=== PATIENT | female | born 1970 | race Caucasian/White ===

== ENCOUNTER 2018-01-23 11:32 | Inpatient (IN) | payer BC ==
[2018-01-23 13:10] VITALS: BMI 23.0
--- NOTE | 2018-01-23 17:24 | HP ---
CIWA Score - CIWA Score Nausea/Vomitin Muscle Tremors: 2 Anxiety: 2 Agitation: 2 Paroxysmal Sweats: 1-Minimal Palms Moist Orientation: 0-Oriented Tacttile Disturbances: 1-Very Mild Itch/Numbness Auditory Disturbances: 1-Very Mild Visual Disturbances: 1-Very Mild Sensitivity Headache: 2-Mild CIWA-Ar Total Score: 14 Admission ROS BHS - HPI Chief Complaint: i need help to stop drinking alcohol Allergies/Adverse Reactions: Allergies Allergy/AdvReac Type Severity Reaction Status Date / Time doxycycline Allergy Severe Vomiting Verified 01/23/18 16:46 tramadol Allergy Severe Nausea Verified 01/23/18 16:46 History of Present Illness: this 47 years old female with alcohol dependence,seeking detox,withdrawal symptom,last detox 2000 in [place] syncope alcohol related 2 weeks ago nicotine dependence weight loss has been in suboxone for 3 years ,last medicated today 8mgs/2mgs daily trigeminal neuralgia seen by neurrologsit? longest sobriety 16 years anxiety and depression,insomnia - Ebola screening Have you traveled outside of the country in the last 21 days: No Have you been sick,other than usual withdrawal symptoms: No - Review of Systems Constitutional: Loss of Appetite, Malaise, Night Sweats, Changes in sleep, Weakness, Unintentional Wgt. Loss EENT: reports: Nose Congestion Respiratory: reports: No Symptoms reported Cardiac: reports: No Symptoms Reported GI: reports: Nausea, Indigestion, Abdominal cramping Musculoskeletal: reports: Back Pain, Muscle Pain Integumentary: reports: Dryness Neuro: reports: Headache, Tremors Endocrine: reports: No Symptoms Reported Hematology: reports: No Symptoms Reported Psychiatric: reports: No Sypmtoms Reported, Judgement Intact, Mood/Affect Appropiate, Agitated, Anxious, Depressed (insomnia) Patient History - Patient Medical History Hx Anemia: No Hx Asthma: No Hx Chronic Obstructive Pulmonary Disease (COPD): No Hx Cancer: No Hx Cardiac Disorders: No Hx Congestive Heart Failure: No Hx Hypertension: No Hx Hypercholesterolemia: No Hx Pacemaker: No HX Cerebrovascular Accident: No Hx Seizures: No Hx Dementia: No Hx Diabetes: No Hx Gastrointestinal Disorders: No Hx Liver Disease: No Hx Genitourinary Disorders: No Hx Sexually Transmitted Disorders: No Hx Renal Disease (ESRD): No Hx Thyroid Disease: Yes (hypothyroidism) Hx Human Immunodeficiency Virus (HIV): No (last 2016 negative) Hx Hepatitis C: No Hx Depression: Yes Hx Suicide Attempt: No Hx Bipolar Disorder: No Hx Schizophrenia: No Other Medical History: anxiety,depression,insomnia - Patient Surgical History Past Surgical History: No Hx Neurologic Surgery: No Hx Cataract Extraction: No Hx Cardiac Surgery: No Hx Lung Surgery: No Hx Breast Surgery: No Hx Breast Biopsy: No Hx Abdominal Surgery: No Hx Appendectomy: No Hx Cholecystectomy: No Hx Genitourinary Surgery: No Hx Section: No Hx Orthopedic Surgery: No Anesthesia Reaction: No - PPD History Previous Implant?: Yes Documented Results: Negative w/o proof Implanted On Prior R Admission?: No PPD to be Administered?: Yes - Reproductive History Patient is a Female of Child Bearing Age (11 -55 yrs old): Yes Last Menstrual Period: 11/18/17 Patient : No - Smoking Cessation Smoking history: Current every day smoker Have you smoked in the past 12 months: Yes Aproximately how many cigarettes per day: 5 Hx Chewing Tobacco Use: No Initiated information on smoking cessation: Yes 'Breaking Loose' booklet given: 01/23/18 - Substance & Tx. History Hx Alcohol Use: Yes Hx Substance Use: No Substance Use Type: Alcohol Hx Substance Use Treatment: Yes ([place] 16 years ago) - Substances Abused Alcohol Route: Oral Frequency: Daily Amount used: LIQUOR- 3 PINTS Age of first use: 17 Date of Last Use: 01/21/18 Family Disease History - Family Disease History Family Disease History: [place]: Mother ( metastastic bone cancer), Other: Father (alcohol,) Admission Physical Exam BHS - Vital Signs Vital Signs: Vital Signs - 24 hr 01/23/18 13:07 Temperature 97.6 F Pulse Rate 86 Respiratory 18 Rate Blood Pressure 116/71 - Physical General Appearance: Yes: Moderate Distress, Tremorous, Irritable, Sweating, Anxious HEENTM: Yes: Normal ENT Inspection, ALIS, Pharynx Normal Respiratory: Yes: Lungs Clear, Normal Breath Sounds, No Respiratory Distress Neck: Yes: Within Normal Limits, Supple, Trachea in good position Breast: Yes: Breast Exam Deferred Cardiology: Yes: Within Normal Limits, Regular Rhythm, Regular Rate, S1, S2 Abdominal: Yes: Within Normal Limits, Normal Bowel Sounds, Non Tender, Flat, Soft Genitourinary: Yes: Within Normal Limits Back: Yes: Muscle Spasm Musculoskeletal: Yes: full range of Motion, Back pain, Muscle Pain Extremities: Yes: Normal Range of Motion, Tremors Neurological: Yes: associate program manager II-XII NML intact, Alert, Motor Strength 5/5 Integumentary: Yes: Dry Lymphatic: Yes: Within Normal Limits - Diagnostic (1) Alcohol dependence with uncomplicated withdrawal Current Visit: Yes Status: Acute (2) Syncope Current Visit: Yes Status: Acute (3) Encounter for monitoring Suboxone maintenance therapy Current Visit: Yes Status: Acute (4) Dehydration Current Visit: Yes Status: Acute (5) Nicotine dependence Current Visit: Yes Status: Acute (6) Insomnia secondary to depression with anxiety Current Visit: Yes Status: Acute (7) Hypothyroidism Current Visit: Yes Status: Acute (8) Weight loss Current Visit: Yes Status: Acute Cleared for Admission [facility] - Detox or Rehab [facility] Level of Care: Medically Managed Detox Regimen/Protocol: Librium [facility] Breath Alcohol Content Breath Alcohol Content: 0 Urine Pregancy Test - Result Urine Test Results: Negative- NO Line Present Urine Drug Screen - Results Drug Screen Negative: No Urine Drug Screen Results: BZO-Benzodiazepines, BUP-Suboxone
[2018-01-23] MEDS ORDERED: ACETAMINOPHEN 325 MG TABLET (FP) PO PRN (17:40)
[2018-01-23] MEDS ORDERED: MAGNESIUM HYDROX 2400MG/30ML ORAL SUSPENSION 30 ML CUP PO PRN (17:40)
[2018-01-23] MEDS ORDERED: LOPERAMIDE HCL 2 MG CAPSULE PO PRN (17:40)
[2018-01-23] MEDS ORDERED: MENTHOL/PHENOL 1 EACH UD MM PRN (17:40)
[2018-01-23] MEDS ORDERED: MAGNESIUM CITRATE 300 ML BOTTLE PO PRN (17:40)
[2018-01-23] MEDS ORDERED: MAG HYDROX/AL HYDROX/SIMETH 30 ML UNIT-DOSE CUP PO PRN (17:40)
[2018-01-23] MEDS ORDERED: guaiFENesin/D-METHORPHAN HB 10 ML UNIT-DOSE CUPS PO PRN (17:40)
[2018-01-23] MEDS ORDERED: hydrOXYzine PAMOATE 50 MG CAPSULE (FP) PO PRN (17:40)
[2018-01-23] MEDS ORDERED: IBUPROFEN 400 MG TABLET (FP) PO PRN (17:40)
[2018-01-23] MEDS ORDERED: P-EPHED 60MG/TRIPROLIDI 2.5MG TABLET PO PRN (17:40)
[2018-01-23] MEDS: NICOTINE 14 MG/24 HOURS TOPICAL PATCH TD SCH (19:33)
[2018-01-23] MEDS: chlordiazePOXIDE HCL 25 MG CAPSULE PO PRN (19:33)
[2018-01-23] MEDS ORDERED: MELATONIN 5 MG TABLETS PO PRN (22:00)
[2018-01-23] MEDS: chlordiazePOXIDE HCL 25 MG CAPSULE PO SCH (22:19)
[2018-01-23] MEDS: THIAMINE HCL 100 MG TABLET (FP) PO SCH (22:19)
[2018-01-24] MEDS: chlordiazePOXIDE HCL 25 MG CAPSULE PO SCH ×4 (05:41→22:03)
[2018-01-24] MEDS: chlordiazePOXIDE HCL 25 MG CAPSULE PO PRN ×2 (07:41→19:19)
[2018-01-24] MEDS: LEVOTHYROXINE NA 25 MCG TABLET (FP) PO SCH (07:42)
[2018-01-24] MEDS: PRENATAL VITAMINS W/ FOLIC ACID TABLET (FP) PO SCH (10:42)
[2018-01-24] MEDS: BUPRENORPHINE/NALOXONE 8 MG/2 MG FILM PACKET SL SCH (10:42)
[2018-01-24] MEDS: NICOTINE 14 MG/24 HOURS TOPICAL PATCH TD SCH (10:42)
[2018-01-24 11:09] LABS: HEMATOCRIT 35.9 % (32.4-45.2); HEMOGLOBIN 11.9 GM/dL (10.7-15.3); MCH 34.6 pg (25.7-33.7); MCHC 33.2 g/dl (32.0-36.0); MEAN CELL VOLUME 104.4 fl (80-96); MEAN PLT VOLUME 7.4 fl (7.5-11.1); PLATELET COUNT 147 K/MM3 (134-434); RBC 3.44 M/mm3 (3.60-5.2); RDW 13.7 % (11.6-15.6); WHITE BLOOD COUNT 4.5 K/mm3 (4.0-10.0)
[2018-01-24 12:00] LABS: URINE APPEARANCE CLOUDY; URINE BILIRUBIN NEGATIVE (<2.0 mg/dL); URINE COLOR AMBER; URINE GLUCOSE (UA) NEGATIVE (NEGATIVE); URINE KETONE NEGATIVE (NEGATIVE); URINE LEUK ESTERASE NEGATIVE (NEGATIVE); URINE NITRITE NEGATIVE (NEGATIVE); URINE PROTEIN 1+ (NEGATIVE); URINE UROBILINOGEN NEGATIVE mg/dL (0.2-1.0)
[2018-01-24 12:06] LABS: CALCIUM OXALATE CRYSTALS FEW /hpf (NONE SEEN); EPI CELLS FEW /HPF (FEW); URINE MUCUS RARE
[2018-01-24 12:09] LABS: ALBUMIN 2.8 g/dl (3.4-5.0); ALK PHOS 100 U/L (45-117); ANION GAP 5 MMOL/L (8-16); BILIRUBIN,TOTAL 0.6 mg/dL (0.2-1); BLOOD UREA NITROGEN 13 mg/dL (7-18); CALCIUM 8.6 mg/dL (8.5-10.1); CHLORIDE 106 mmol/L (98-107); CO2 31 mmol/L (21-32); CREATININE 0.3 mg/dL (0.55-1.3); GLUCOSE,RANDOM 78 mg/dL (74-106); POTASSIUM 3.8 mmol/L (3.5-5.1); SGOT/AST 28 U/L (15-37); SGPT/ALT 23 U/L (13-61); SODIUM 142 mmol/L (136-145); TOT PROT 5.5 g/dl (6.4-8.2)
--- NOTE | 2018-01-24 12:24 | CONSULT ---
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 She reported prior Detox treatment in [place] in 2000 including alcohol related seizure, nad black out spells. She received a trial of Suboxone. Refer to counselor summary for more detailed history of alcohol use disorder Medical History: Patient has a history of Hypothyroidism and a history of Trigeminal neuralgia treated by a neurologist Psychiatric History: She denies prior psychiatric history and treatment. C/o feeling anxious with insomnina, denies depression denies suicidal or homicidal ideation Physical/Sexual Abuse/Trauma History: Denied Mental Status Exam - Mental Status Exam Alert and Oriented to: Place, Person Cognitive Function: Good Patient Appearance: Well Groomed Mood: Apprehensive Affect: Appropriate Patient Behavior: Appropriate, Cooperative Speech Pattern: Clear Voice Loudness: Normal Thought Process: Intact Thought Disorder: Not Present Hallucinations: None Suicidal Ideation: None Homicidal Ideation: None Insight/Judgement: Poor Sleep: Poorly Appetite: Fair Muscle strength/Tone: Normal Gait/Station: Normal Psychiatric Findings - Initial Treatment Plan Initial Treatment Plan: Continue in patient detox treatment. Psychoeducation. Ambien 5 mg po q hs prn
[2018-01-24] MEDS ORDERED: chlordiazePOXIDE HCL 25 MG CAPSULE PO ONE (13:59)
--- NOTE | 2018-01-24 13:59 | PN ---
[facility] CIWA - CIWA Score Nausea/Vomitin-Mild Nausea/No Vomiting Muscle Tremors: 3 Anxiety: 2 Agitation: 3 Paroxysmal Sweats: 1-Minimal Palms Moist Orientation: 1-Uncertain about Date Tacttile Disturbances: 0-None Auditory Disturbances: 0-None Visual Disturbances: 0-None Headache: 1-Very Mild CIWA-Ar Total Score: 12 S Progress Note (SOAP) Subjective: sweat tremor restlessness anxiety trouble sleep at night Objective: 01/24/18 14:01 Vital Signs Temperature 96.8 F L 01/24/18 10:00 Pulse Rate 75 01/24/18 10:00 Respiratory Rate 16 01/24/18 10:00 Blood Pressure 91/57 L 01/24/18 10:00 O2 Sat by Pulse Oximetry (%) Laboratory Last Values WBC 4.5 K/mm3 (4.0-10.0) 01/24/18 07:30 RBC 3.44 M/mm3 (3.60-5.2) L 01/24/18 07:30 Hgb 11.9 GM/dL (10.7-15.3) 01/24/18 07:30 Hct 35.9 % (32.4-45.2) 01/24/18 07:30 MCV 104.4 fl (80-96) H 01/24/18 07:30 MCH 34.6 pg (25.7-33.7) H 01/24/18 07:30 MCHC 33.2 g/dl (32.0-36.0) 01/24/18 07:30 RDW 13.7 % (11.6-15.6) 01/24/18 07:30 Plt Count 147 K/MM3 (134-434) 01/24/18 07:30 MPV 7.4 fl (7.5-11.1) L 01/24/18 07:30 Sodium 142 mmol/L (136-145) 01/24/18 07:30 Potassium 3.8 mmol/L (3.5-5.1) 01/24/18 07:30 Chloride 106 mmol/L (98-107) 01/24/18 07:30 Carbon Dioxide 31 mmol/L (21-32) 01/24/18 07:30 Anion Gap 5 MMOL/L (8-16) L 01/24/18 07:30 BUN 13 mg/dL (7-18) 01/24/18 07:30 Creatinine 0.3 mg/dL (0.55-1.3) L 01/24/18 07:30 Creat Clearance w eGFR > 60 (>60) 01/24/18 07:30 Random Glucose 78 mg/dL (74-106) 01/24/18 07:30 Calcium 8.6 mg/dL (8.5-10.1) 01/24/18 07:30 Total Bilirubin 0.6 mg/dL (0.2-1) 01/24/18 07:30 AST 28 U/L (15-37) 01/24/18 07:30 ALT 23 U/L (13-61) 01/24/18 07:30 Alkaline Phosphatase 100 U/L (45-117) 01/24/18 07:30 Total Protein 5.5 g/dl (6.4-8.2) L 01/24/18 07:30 Albumin 2.8 g/dl (3.4-5.0) L 01/24/18 07:30 TSH 1.67 uIU/ml (0.358-3.74) 01/24/18 07:30 Urine Color Bernie 01/24/18 07:30 Urine Appearance Cloudy 01/24/18 07:30 Urine pH 6.0 (5.0-8.0) 01/24/18 07:30 Ur Specific [place] 1.024 (1.010-1.035) 01/24/18 07:30 Urine Protein 1+ (NEGATIVE) H 01/24/18 07:30 Urine Glucose (UA) Negative (NEGATIVE) 01/24/18 07:30 Urine Ketones Negative (NEGATIVE) 01/24/18 07:30 Urine Blood Negative (NEGATIVE) 01/24/18 07:30 Urine Nitrite Negative (NEGATIVE) 01/24/18 07:30 Urine Bilirubin Negative (<2.0 mg/dL) 01/24/18 07:30 Urine Urobilinogen Negative mg/dL (0.2-1.0) 01/24/18 07:30 Ur Leukocyte Esterase Negative (NEGATIVE) 01/24/18 07:30 Urine WBC (Auto) 4 /hpf (3-5) 01/24/18 07:30 Urine RBC (Auto) None /hpf (0-3) 01/24/18 07:30 Ur Epithelial Cells Few /HPF (FEW) 01/24/18 07:30 Calcium Oxalate Crystal Few /hpf (NONE SEEN) 01/24/18 07:30 Urine Mucus Rare 01/24/18 07:30 RPR Titer Nonreactive (NONREACTIVE) 01/24/18 07:30 HIV 1&2 Antibody Screen Negative 01/24/18 07:30 HIV P24 Antigen Negative 01/24/18 07:30 lab noted Assessment: 01/24/18 14:01 withdrawal sx Plan: continue detox
[2018-01-24] MEDS: THIAMINE HCL 100 MG TABLET (FP) PO SCH (22:03)
[2018-01-24] MEDS: ZOLPIDEM TARTRATE 5 MG TABLET PO PRN (22:03)
[2018-01-25] MEDS: chlordiazePOXIDE HCL 25 MG CAPSULE PO PRN ×4 (01:39→20:04)
[2018-01-25] MEDS: chlordiazePOXIDE HCL 25 MG CAPSULE PO SCH ×3 (05:40→16:54)
[2018-01-25] MEDS: LEVOTHYROXINE NA 25 MCG TABLET (FP) PO SCH (07:13)
--- NOTE | 2018-01-25 10:03 | PN ---
Psychiatric Progress Note Vital Signs: Vital Signs Period Temp Pulse Resp BP Sys/Escobedo Pulse Ox Last 24 Hr 96.3 F-99.1 F 76-96 16-20 99-127/59-84 Date of Session: 01/25/18 Chief Complaint:: My medications HPI: Patient reports he forgot to tell to psychiatrist during evaluation he is taking Seroquel 200mg po qhs priorm to admission Current Medications: Active Medications Generic Name Dose Route Start Last Admin Trade Name Freq PRN Reason Stop Dose Admin Acetaminophen 650 mg 01/23/18 17:40 Tylenol - PO Q4H PRN FEVER Al Hydroxide/Mg Hydroxide 30 ml 01/23/18 17:40 Mylanta Oral Suspension - PO Q6H PRN DYSPEPSIA Buprenorphine/Naloxone 1 each 01/24/18 10:00 01/24/18 10:42 Suboxone 8mg/2mg Sl Film - SL 1 each DAILY CHANA Administration Chlordiazepoxide HCl 25 mg 01/24/18 23:00 01/25/18 05:40 Librium - PO 01/25/18 17:01 25 mg [id number] CHANA Administration Chlordiazepoxide HCl 15 mg 01/25/18 23:00 Librium - PO 01/26/18 17:01 [id number] CHANA Chlordiazepoxide HCl 25 mg 01/23/18 17:40 01/25/18 08:26 Librium - PO 01/26/18 17:39 25 mg Q4H PRN Administration WITHDRAWAL(CONT SUBST) Chlordiazepoxide HCl 10 mg 01/26/18 23:00 Librium - PO 01/27/18 17:01 [id number] CHANA Eucalyptus/Menthol/Phenol/Sorbitol 1 each 01/23/18 17:40 Cepastat Lozenge - MM Q4H PRN SORE THROAT Guaifenesin 10 ml 01/23/18 17:40 Robitussin Dm - PO Q6H PRN COUGH Hydroxyzine Pamoate 50 mg 01/23/18 17:40 Vistaril - PO Q4H PRN AGITATION Levothyroxine Sodium 50 mcg 01/24/18 07:00 01/25/18 07:13 Synthroid - PO 50 mcg DAILY@0700 CHANA Administration Loperamide HCl 4 mg 01/23/18 17:40 Imodium - PO Q6H PRN DIARRHEA Magnesium Citrate 300 ml 01/23/18 17:40 Citroma - PO Q48H PRN CONSTIPATION Magnesium Hydroxide 30 ml 01/23/18 17:40 Milk Of Magnesia - PO DAILY PRN CONSTIPATION Melatonin 5 mg 01/23/18 22:00 01/23/18 22:19 Melatonin PO 5 mg HS PRN Administration INSOMNIA Nicotine 14 mg 01/23/18 18:00 01/24/18 10:42 Nicoderm Patch - TD 14 mg DAILY CHANA Administration Multivit/Folic Acid/Iron 1 tab 01/24/18 10:00 01/24/18 10:42 Vitamins (Sjr) - PO 1 tab DAILY CHANA Administration Pseudoephedrine/Triprolidine 1 combo 01/23/18 17:40 Actifed - PO TID PRN NASAL CONGESTION Quetiapine Fumarate 200 mg 01/25/18 22:00 Seroquel - PO HS CHANA Thiamine HCl 100 mg 01/23/18 22:00 01/24/18 22:03 Vitamin B1 - PO 100 mg HS CHANA Administration Zolpidem Tartrate 5 mg 01/24/18 12:29 01/24/18 22:03 Ambien - PO 5 mg HS PRN Administration INSOMNIA Medication(s) Change(s): Seroquel 200mg po qhs Mental Status Exam - Mental Status Exam Alert and Oriented to: Place, Person Cognitive Function: Fair Patient Appearance: Well Groomed Mood: Anxious Affect: Mood Congruent Patient Behavior: Cooperative Speech Pattern: Appropriate Voice Loudness: Mildly Soft/Quiet Thought Process: Goal Oriented Thought Disorder: Being Controlled Hallucinations: Denies Suicidal Ideation: Denies Homicidal Ideation: Denies Appetite: Weight loss Muscle strength/Tone: Mild Hypotonicity Gait/Station: Normal Additional Comments: Seroquel 200mg po qhs Psychiatric Treatment Plan - Problem List (1) Alcohol dependence with uncomplicated withdrawal Current Visit: Yes (2) Hypothyroidism Current Visit: Yes (3) Insomnia secondary to depression with anxiety Current Visit: Yes (4) Nicotine dependence Current Visit: Yes (5) Syncope Current Visit: Yes (6) Weight loss Current Visit: Yes Initial treatment plan: Seroquel 200mg po qhs
[2018-01-25] MEDS: NICOTINE 14 MG/24 HOURS TOPICAL PATCH TD SCH (10:33)
[2018-01-25] MEDS: PRENATAL VITAMINS W/ FOLIC ACID TABLET (FP) PO SCH (10:33)
[2018-01-25] MEDS: BUPRENORPHINE/NALOXONE 8 MG/2 MG FILM PACKET SL SCH (10:33)
--- NOTE | 2018-01-25 11:04 | PN ---
[facility] CIWA - CIWA Score Nausea/Vomitin-No Nausea/No Vomiting Muscle Tremors: 4-Moderate,w/Arms Extend Anxiety: 3 Agitation: 3 Paroxysmal Sweats: 3 Orientation: 0-Oriented Tacttile Disturbances: 0-None Auditory Disturbances: 0-None Visual Disturbances: 0-None Headache: 1-Very Mild CIWA-Ar Total Score: 14 S Progress Note (SOAP) Subjective: interrupted sleep agitation anxiety sweats body aches Objective: 01/25/18 11:02 Vital Signs Temperature 98.0 F 01/25/18 09:18 Pulse Rate 96 H 01/25/18 09:18 Respiratory Rate 16 01/25/18 09:18 Blood Pressure 124/75 01/25/18 09:18 O2 Sat by Pulse Oximetry (%) Laboratory Tests 01/24/18 01/24/18 01/24/18 07:30 07:30 07:30 WBC 4.5 RBC 3.44 L Hgb 11.9 Hct 35.9 MCV 104.4 H MCH 34.6 H MCHC 33.2 RDW 13.7 Plt Count 147 MPV 7.4 L Sodium Potassium Chloride Carbon Dioxide Anion Gap BUN Creatinine Creat Clearance w eGFR Random Glucose Calcium Total Bilirubin AST ALT Alkaline Phosphatase Total Protein Albumin TSH Urine Color Bernie Urine Appearance Cloudy Urine pH 6.0 Ur Specific [place] 1.024 Urine Protein 1+ H Urine Glucose (UA) Negative Urine Ketones Negative Urine Blood Negative Urine Nitrite Negative Urine Bilirubin Negative Urine Urobilinogen Negative Ur Leukocyte Esterase Negative Urine WBC (Auto) 4 Urine RBC (Auto) None Ur Epithelial Cells Few Calcium Oxalate Crystal Few Urine Mucus Rare RPR Titer HIV 1&2 Antibody Screen Negative HIV P24 Antigen Negative 01/24/18 01/24/18 07:30 07:30 WBC RBC Hgb Hct MCV MCH MCHC RDW Plt Count MPV Sodium 142 Potassium 3.8 Chloride 106 Carbon Dioxide 31 Anion Gap 5 L BUN 13 Creatinine 0.3 L Creat Clearance w eGFR > 60 Random Glucose 78 Calcium 8.6 Total Bilirubin 0.6 AST 28 ALT 23 Alkaline Phosphatase 100 Total Protein 5.5 L Albumin 2.8 L TSH 1.67 Urine Color Urine Appearance Urine pH Ur Specific [place] Urine Protein Urine Glucose (UA) Urine Ketones Urine Blood Urine Nitrite Urine Bilirubin Urine Urobilinogen Ur Leukocyte Esterase Urine WBC (Auto) Urine RBC (Auto) Ur Epithelial Cells Calcium Oxalate Crystal Urine Mucus RPR Titer Nonreactive HIV 1&2 Antibody Screen HIV P24 Antigen aaox3 ambulating no acute distress Assessment: 01/25/18 11:03 withdrawal sx Plan: continue detox increase fluids
[2018-01-25] MEDS: QUEtiapine FUMARATE 200 MG TABLET PO SCH (22:01)
[2018-01-25] MEDS: THIAMINE HCL 100 MG TABLET (FP) PO SCH (22:01)
[2018-01-25] MEDS: chlordiazePOXIDE 5 MG CAPSULE PO SCH (22:01)
[2018-01-26] MEDS: chlordiazePOXIDE 5 MG CAPSULE PO SCH ×3 (05:33→17:18)
[2018-01-26] MEDS: LEVOTHYROXINE NA 25 MCG TABLET (FP) PO SCH (06:07)
[2018-01-26] MEDS: chlordiazePOXIDE HCL 25 MG CAPSULE PO PRN ×2 (07:51→12:35)
[2018-01-26] MEDS: BUPRENORPHINE/NALOXONE 8 MG/2 MG FILM PACKET SL SCH (10:40)
[2018-01-26] MEDS: PRENATAL VITAMINS W/ FOLIC ACID TABLET (FP) PO SCH (10:40)
[2018-01-26] MEDS: NICOTINE 14 MG/24 HOURS TOPICAL PATCH TD SCH (10:41)
--- NOTE | 2018-01-26 11:55 | PN ---
[facility] Progress Note (SOAP) Subjective: less shaky sweats interrupted sleep Objective: 01/26/18 11:55 Vital Signs Temperature 97.9 F 01/26/18 09:49 Pulse Rate 87 01/26/18 09:49 Respiratory Rate 18 01/26/18 09:49 Blood Pressure 120/73 01/26/18 09:49 O2 Sat by Pulse Oximetry (%) aaox3 ambulating no acute distress Assessment: 01/26/18 11:55 withdrawal sx Plan: continue detox increase fluids d/c in am
[2018-01-26] MEDS: THIAMINE HCL 100 MG TABLET (FP) PO SCH (22:06)
[2018-01-26] MEDS: ZOLPIDEM TARTRATE 5 MG TABLET PO PRN (22:06)
[2018-01-26] MEDS: chlordiazePOXIDE HCL 10 MG CAPSULE PO SCH (22:06)
[2018-01-26] MEDS: QUEtiapine FUMARATE 200 MG TABLET PO SCH (22:06)
[2018-01-27] MEDS: LEVOTHYROXINE NA 25 MCG TABLET (FP) PO SCH (06:14)
[2018-01-27] MEDS: chlordiazePOXIDE HCL 10 MG CAPSULE PO SCH ×3 (06:14→17:42)
--- NOTE | 2018-01-27 08:37 | DS ---
[facility] Detox Discharge Summary Admission Date: 01/23/18 Discharge Date: 01/27/18 - History Present History: Alcohol Dependence - Physical Exam Results Vital Signs: Vital Signs Temperature 97 F L 01/27/18 07:30 Pulse Rate 87 01/27/18 07:30 Respiratory Rate 18 01/27/18 07:30 Blood Pressure 111/72 01/27/18 07:30 O2 Sat by Pulse Oximetry (%) - Treatment Hospital Course: Detox Protocol Followed, Detoxed Safely, Responded well, Discharged Condition Good, Rehab Referral Accepted - Medication Discharge Medications: Ambulatory Orders Buprenorphine HCl/Naloxone HCl [Suboxone 8 mg-2 mg Sl Tablets] 1 each SL DAILY 01/23/18 Levothyroxine [Synthroid -] 50 mcg PO DAILY 01/23/18 Quetiapine Fumarate [Seroquel -] 200 mg PO HS #30 tablet 01/25/18 - Diagnosis (1) Alcohol dependence with uncomplicated withdrawal Current Visit: Yes Status: Chronic (2) Dehydration Current Visit: Yes Status: Acute (3) Encounter for monitoring Suboxone maintenance therapy Current Visit: Yes Status: Acute (4) Hypothyroidism Current Visit: Yes Status: Acute (5) Insomnia secondary to depression with anxiety Current Visit: Yes Status: Acute (6) Nicotine dependence Current Visit: Yes Status: Chronic Qualifiers: Nicotine product type: cigarettes Substance use status: uncomplicated Qualified Code(s): F17.210 - Nicotine dependence, cigarettes, uncomplicated (7) Syncope Current Visit: Yes Status: Acute (8) Weight loss Current Visit: Yes Status: Acute - AMA Did Patient Leave Against Medical Advice: No (referred to out patient rehab facility)
[2018-01-27] MEDS: BUPRENORPHINE/NALOXONE 8 MG/2 MG FILM PACKET SL SCH (09:43)
[2018-01-27] MEDS: PRENATAL VITAMINS W/ FOLIC ACID TABLET (FP) PO SCH (09:43)
[2018-01-27] MEDS: NICOTINE 14 MG/24 HOURS TOPICAL PATCH TD SCH (10:51)
[2018-01-27 19:09] VITALS: BP 130/70; PULSE 104; TEMP 97.3
== END 2018-01-27 19:16 | disposition other institution (70) | DRG 773 ==
LOC: YASAS 11:32 → Y6N 16:28
PROC: HZ2ZZZZ Detoxification Services for Substance Abuse Treatment (ICD-10-PCS; principal; 2018-01-23)
DX: F10.230 Alcohol dependence with withdrawal, uncomplicated (principal); F11.20 Opioid dependence, uncomplicated; F17.210 Nicotine dependence, cigarettes, uncomplicated; F51.05 Insomnia due to other mental disorder; E86.0 Dehydration; E03.9 Hypothyroidism, unspecified; Z88.1 Allergy status to other antibiotic agents; Z87.898 Personal history of other specified conditions; Z59.0 Homelessness
CPT/HCPCS: 36415; 80053; 81003; 81015; 84443; 85027; 86593; 87389

== ENCOUNTER 2018-01-27 19:38 | Inpatient (IN) | payer BC ==
[2018-01-27] MEDS ORDERED: MAGNESIUM CITRATE 300 ML BOTTLE PO PRN (20:16)
[2018-01-27] MEDS ORDERED: MAG HYDROX/AL HYDROX/SIMETH 30 ML UNIT-DOSE CUP PO PRN (20:16)
[2018-01-27] MEDS ORDERED: MAGNESIUM HYDROX 2400MG/30ML ORAL SUSPENSION 30 ML CUP PO PRN (20:16)
[2018-01-27] MEDS ORDERED: IBUPROFEN 400 MG TABLET (FP) PO PRN (20:16)
[2018-01-27] MEDS ORDERED: NICOTINE POLACRILEX 2 MG GUM BUC PRN (20:16)
[2018-01-27] MEDS ORDERED: guaiFENesin/D-METHORPHAN HB 10 ML UNIT-DOSE CUPS PO PRN (20:16)
[2018-01-27] MEDS ORDERED: P-EPHED 60MG/TRIPROLIDI 2.5MG TABLET PO PRN (20:16)
[2018-01-27] MEDS ORDERED: ACETAMINOPHEN 325 MG TABLET (FP) PO PRN (20:16)
[2018-01-27] MEDS ORDERED: LOPERAMIDE HCL 2 MG CAPSULE PO PRN (20:16)
[2018-01-27] MEDS ORDERED: MENTHOL/PHENOL 1 EACH UD MM PRN (20:16)
--- NOTE | 2018-01-27 20:18 | HP ---
PRE[facility] Rehab Assess/Revision - Admission History Admitted to Rehab from: [facility] Date of Admission to Rehab: 01/27/18 - Findings Detox History & Physical reviewed: Yes Concur with findings: Yes Inpatient Rehab Admission - Initial Determination Are CD services needed?: Yes Free of communicable disease: Yes Not in need of hospitalization: Yes - Rehab Admission Criteria Previous failed treatment: Yes Poor recovery environment: Yes Comorbidities: Yes Lacks judgement: Yes Patient is meeting Inpatient Rehab admission criteria:: Yes
[2018-01-27] MEDS: THIAMINE HCL 100 MG TABLET (FP) PO SCH (23:11)
[2018-01-27] MEDS: MELATONIN 5 MG TABLETS PO PRN (23:11)
[2018-01-28] MEDS: LEVOTHYROXINE NA 25 MCG TABLET (FP) PO SCH (06:50)
[2018-01-28] MEDS: NICOTINE 14 MG/24 HOURS TOPICAL PATCH TD SCH (09:52)
[2018-01-28] MEDS: PRENATAL VITAMINS W/ FOLIC ACID TABLET (FP) PO SCH (09:53)
[2018-01-28] MEDS: BUPRENORPHINE/NALOXONE 8 MG/2 MG FILM PACKET SL SCH (09:53)
[2018-01-28] MEDS ORDERED: LEVOTHYROXINE NA 75 MCG TABLET (FP) PO SCH (10:00)
--- NOTE | 2018-01-28 19:43 | PN ---
PREM Progress Note Note: Psychiatrist military education coordinator note: Called to order medication for newly admitted patient from detox. Medication reconciliation done. Seroquel 200 mg po HS ordered for patient
[2018-01-28] MEDS: QUEtiapine FUMARATE 200 MG TABLET PO SCH ×2 (21:13→21:14)
[2018-01-28] MEDS: THIAMINE HCL 100 MG TABLET (FP) PO SCH (21:14)
[2018-01-29] MEDS: LEVOTHYROXINE NA 25 MCG TABLET (FP) PO SCH (06:07)
[2018-01-29] MEDS: NICOTINE 14 MG/24 HOURS TOPICAL PATCH TD SCH (09:56)
[2018-01-29] MEDS: BUPRENORPHINE/NALOXONE 8 MG/2 MG FILM PACKET SL SCH (09:56)
[2018-01-29] MEDS: PRENATAL VITAMINS W/ FOLIC ACID TABLET (FP) PO SCH (09:56)
--- NOTE | 2018-01-29 11:56 | HP ---
Psychiatrist Admission - Data Date of interview: 01/29/18 Admission source: [address] [place] [address] Identifying data: This is the first admsion to [address] [place] [address] for this 47 years old female Medical History: Significsnt for Hypothyroidism. Vital Signs: Vital Signs - 24 hr 01/29/18 01/29/18 01/29/18 00:30 03:30 06:58 Temperature 97.2 F L Pulse Rate 79 Respiratory 18 18 18 Rate Blood Pressure 99/71 Allergies/Adverse Reactions: Allergies Allergy/AdvReac Type Severity Reaction Status Date / Time doxycycline Allergy Severe Vomiting Verified 01/23/18 16:46 tramadol Allergy Severe Nausea Verified 01/23/18 16:46 Concur with the findings of this exam: Yes - Substance Abuse/Tx History Hx Alcohol Use: Yes (relapsed a few months ago after 10 years of abstinence) Hx Substance Use: Yes Substance Use Type: Alcohol, Heroin Hx Substance Use Treatment: Yes (detox in [facility] in 2000) Mental Status Exam - Mental Status Exam Alert and Oriented to: Time, Place, Person Cognitive Function: Grossly Intact Patient Appearance: Well Groomed Mood: Anxious Affect: Mood Congruent Patient Behavior: Cooperative Speech Pattern: Clear Voice Loudness: Normal Thought Process: Goal Oriented Thought Disorder: Not Present Hallucinations: Denies Suicidal Ideation: Denies Homicidal Ideation: Denies Insight/Judgement: Fair Sleep: Fair Appetite: Good Muscle strength/Tone: Normal Gait/Station: Normal Psychiatric Findings - Problem List ([place] 1, 2,3) (1) Hypothyroidism Current Visit: Yes Status: Chronic (2) Nicotine dependence Current Visit: Yes Status: Chronic Qualifiers: (3) Alcohol dependence Current Visit: Yes Status: Chronic (4) Opioid dependence Current Visit: Yes Status: Chronic - Initial Treatment Plan Initial Treatment Plan: Seroquel 200 mg po hs.
[2018-01-29] MEDS: QUEtiapine FUMARATE 200 MG TABLET PO SCH ×2 (21:14→21:15)
[2018-01-29] MEDS: THIAMINE HCL 100 MG TABLET (FP) PO SCH (21:14)
[2018-01-30] MEDS: LEVOTHYROXINE NA 25 MCG TABLET (FP) PO SCH (06:34)
[2018-01-30] MEDS: PRENATAL VITAMINS W/ FOLIC ACID TABLET (FP) PO SCH (09:37)
[2018-01-30] MEDS: NICOTINE 14 MG/24 HOURS TOPICAL PATCH TD SCH (09:37)
[2018-01-30] MEDS: BUPRENORPHINE/NALOXONE 8 MG/2 MG FILM PACKET SL SCH (09:38)
[2018-01-30] MEDS: THIAMINE HCL 100 MG TABLET (FP) PO SCH (21:05)
[2018-01-30] MEDS: QUEtiapine FUMARATE 200 MG TABLET PO SCH ×2 (21:05→21:06)
[2018-01-31] MEDS: LEVOTHYROXINE NA 25 MCG TABLET (FP) PO SCH (06:40)
[2018-01-31] MEDS: BUPRENORPHINE/NALOXONE 8 MG/2 MG FILM PACKET SL SCH (09:52)
[2018-01-31] MEDS: PRENATAL VITAMINS W/ FOLIC ACID TABLET (FP) PO SCH (09:52)
[2018-01-31] MEDS: NICOTINE 14 MG/24 HOURS TOPICAL PATCH TD SCH (09:52)
[2018-01-31] MEDS: QUEtiapine FUMARATE 200 MG TABLET PO SCH ×2 (21:09→21:10)
[2018-01-31] MEDS: MELATONIN 5 MG TABLETS PO PRN (21:10)
[2018-01-31] MEDS: hydrOXYzine PAMOATE 50 MG CAPSULE (FP) PO PRN (21:10)
[2018-01-31] MEDS: THIAMINE HCL 100 MG TABLET (FP) PO SCH (21:11)
[2018-02-01] MEDS: LEVOTHYROXINE NA 25 MCG TABLET (FP) PO SCH (06:09)
[2018-02-01] MEDS: PRENATAL VITAMINS W/ FOLIC ACID TABLET (FP) PO SCH (09:49)
[2018-02-01] MEDS: NICOTINE 14 MG/24 HOURS TOPICAL PATCH TD SCH (09:49)
[2018-02-01] MEDS: BUPRENORPHINE/NALOXONE 8 MG/2 MG FILM PACKET SL SCH (09:49)
[2018-02-01] MEDS: QUEtiapine FUMARATE 200 MG TABLET PO SCH (21:18)
[2018-02-01] MEDS: THIAMINE HCL 100 MG TABLET (FP) PO SCH (21:19)
[2018-02-02] MEDS: LEVOTHYROXINE NA 25 MCG TABLET (FP) PO SCH (06:05)
[2018-02-02] MEDS: PRENATAL VITAMINS W/ FOLIC ACID TABLET (FP) PO SCH (10:02)
[2018-02-02] MEDS: BUPRENORPHINE/NALOXONE 8 MG/2 MG FILM PACKET SL SCH (10:02)
[2018-02-02] MEDS: NICOTINE 14 MG/24 HOURS TOPICAL PATCH TD SCH (10:02)
[2018-02-02] MEDS: THIAMINE HCL 100 MG TABLET (FP) PO SCH (21:09)
[2018-02-02] MEDS: hydrOXYzine PAMOATE 50 MG CAPSULE (FP) PO PRN (21:10)
[2018-02-02] MEDS: QUEtiapine FUMARATE 200 MG TABLET PO SCH (21:10)
[2018-02-03] MEDS: LEVOTHYROXINE NA 25 MCG TABLET (FP) PO SCH (06:02)
[2018-02-03] MEDS: NICOTINE 14 MG/24 HOURS TOPICAL PATCH TD SCH (10:01)
[2018-02-03] MEDS: PRENATAL VITAMINS W/ FOLIC ACID TABLET (FP) PO SCH (10:01)
[2018-02-03] MEDS: BUPRENORPHINE/NALOXONE 8 MG/2 MG FILM PACKET SL SCH (10:01)
[2018-02-03] MEDS: THIAMINE HCL 100 MG TABLET (FP) PO SCH (21:08)
[2018-02-03] MEDS: hydrOXYzine PAMOATE 50 MG CAPSULE (FP) PO PRN (21:08)
[2018-02-03] MEDS: QUEtiapine FUMARATE 200 MG TABLET PO SCH (21:08)
[2018-02-04] MEDS: LEVOTHYROXINE NA 25 MCG TABLET (FP) PO SCH (06:05)
[2018-02-04] MEDS: NICOTINE 14 MG/24 HOURS TOPICAL PATCH TD SCH (10:14)
[2018-02-04] MEDS: PRENATAL VITAMINS W/ FOLIC ACID TABLET (FP) PO SCH (10:14)
[2018-02-04] MEDS: BUPRENORPHINE/NALOXONE 8 MG/2 MG FILM PACKET SL SCH (11:57)
[2018-02-04] MEDS: QUEtiapine FUMARATE 200 MG TABLET PO SCH (21:11)
[2018-02-04] MEDS: THIAMINE HCL 100 MG TABLET (FP) PO SCH (21:11)
[2018-02-04] MEDS: MELATONIN 5 MG TABLETS PO PRN (21:11)
[2018-02-04] MEDS: hydrOXYzine PAMOATE 50 MG CAPSULE (FP) PO PRN (21:11)
[2018-02-05] MEDS: LEVOTHYROXINE NA 25 MCG TABLET (FP) PO SCH (06:21)
[2018-02-05] MEDS: PRENATAL VITAMINS W/ FOLIC ACID TABLET (FP) PO SCH (09:53)
[2018-02-05] MEDS: NICOTINE 14 MG/24 HOURS TOPICAL PATCH TD SCH (09:53)
[2018-02-05] MEDS: BUPRENORPHINE/NALOXONE 8 MG/2 MG FILM PACKET SL SCH (09:53)
[2018-02-05] MEDS: QUEtiapine FUMARATE 200 MG TABLET PO SCH (21:04)
[2018-02-05] MEDS: THIAMINE HCL 100 MG TABLET (FP) PO SCH (21:04)
[2018-02-05] MEDS: hydrOXYzine PAMOATE 50 MG CAPSULE (FP) PO PRN (21:05)
[2018-02-06] MEDS: LEVOTHYROXINE NA 25 MCG TABLET (FP) PO SCH (06:23)
[2018-02-06] MEDS: BUPRENORPHINE/NALOXONE 8 MG/2 MG FILM PACKET SL SCH (09:44)
[2018-02-06] MEDS: NICOTINE 14 MG/24 HOURS TOPICAL PATCH TD SCH (09:44)
[2018-02-06] MEDS: PRENATAL VITAMINS W/ FOLIC ACID TABLET (FP) PO SCH (09:44)
[2018-02-06] MEDS: MELATONIN 5 MG TABLETS PO PRN (21:15)
[2018-02-06] MEDS: hydrOXYzine PAMOATE 50 MG CAPSULE (FP) PO PRN (21:15)
[2018-02-06] MEDS: THIAMINE HCL 100 MG TABLET (FP) PO SCH (21:15)
[2018-02-06] MEDS: QUEtiapine FUMARATE 200 MG TABLET PO SCH (21:16)
[2018-02-07] MEDS: LEVOTHYROXINE NA 25 MCG TABLET (FP) PO SCH (06:18)
[2018-02-07] MEDS: BUPRENORPHINE/NALOXONE 8 MG/2 MG FILM PACKET SL SCH (10:08)
[2018-02-07] MEDS: PRENATAL VITAMINS W/ FOLIC ACID TABLET (FP) PO SCH (10:08)
[2018-02-07] MEDS: NICOTINE 14 MG/24 HOURS TOPICAL PATCH TD SCH (10:08)
[2018-02-07] MEDS: THIAMINE HCL 100 MG TABLET (FP) PO SCH (21:16)
[2018-02-07] MEDS: hydrOXYzine PAMOATE 50 MG CAPSULE (FP) PO PRN (21:16)
[2018-02-07] MEDS: MELATONIN 5 MG TABLETS PO PRN (21:16)
[2018-02-07] MEDS: QUEtiapine FUMARATE 200 MG TABLET PO SCH (21:16)
[2018-02-08] MEDS: LEVOTHYROXINE NA 25 MCG TABLET (FP) PO SCH (06:07)
[2018-02-08 06:50] VITALS: BP 100/67; PULSE 88; TEMP 97.9
--- NOTE | 2018-02-08 09:24 | PN ---
Psychiatric Progress Note Vital Signs: Vital Signs Period Temp Pulse Resp BP Sys/Escobedo Pulse Ox Last 24 Hr 97.9 F 88 16 100/67 Date of Session: 02/08/18 Chief Complaint:: Discharge Note HPI: Patient addressing Alcohol and Opioid Dependence comorbid with Nicotine Dependence ROS: Hypothyroidism was medically managed Current Medications: Active Medications Generic Name Dose Route Start Last Admin Trade Name Freq PRN Reason Stop Dose Admin Acetaminophen 650 mg 01/27/18 20:16 01/28/18 17:29 Tylenol - PO 650 mg Q4H PRN Administration FEVER Al Hydroxide/Mg Hydroxide 30 ml 01/27/18 20:16 Mylanta Oral Suspension - PO Q6H PRN DYSPEPSIA Buprenorphine/Naloxone 1 each 02/04/18 12:00 02/07/18 10:08 Suboxone 8mg/2mg Sl Film - SL 02/11/18 11:59 1 each DAILY CHANA Administration Eucalyptus/Menthol/Phenol/Sorbitol 1 each 01/27/18 20:16 Cepastat Lozenge - MM Q4H PRN SORE THROAT Guaifenesin 10 ml 01/27/18 20:16 Robitussin Dm - PO Q6H PRN COUGH Hydroxyzine Pamoate 50 mg 01/27/18 20:16 02/07/18 21:16 Vistaril - PO 50 mg Q4H PRN Administration AGITATION Ibuprofen 400 mg 01/27/18 20:16 Motrin - PO Q6H PRN Pain Level 4-6 Levothyroxine Sodium 50 mcg 01/28/18 07:00 02/08/18 06:07 Synthroid - PO 50 mcg DAILY@0700 CHANA Administration Loperamide HCl 4 mg 01/27/18 20:16 Imodium - PO Q6H PRN DIARRHEA Magnesium Citrate 300 ml 01/27/18 20:16 Citroma - PO Q48H PRN CONSTIPATION Magnesium Hydroxide 30 ml 01/27/18 20:16 Milk Of Magnesia - PO DAILY PRN CONSTIPATION Melatonin 5 mg 01/27/18 22:00 02/07/18 21:16 Melatonin PO 5 mg HS PRN Administration INSOMNIA Nicotine 14 mg 01/28/18 10:00 02/07/18 10:08 Nicoderm Patch - TD 14 mg DAILY CHANA Administration Nicotine Polacrilex 2 mg 01/27/18 20:16 Nicorette Gum - BUC Q2H PRN NICOTINE REPLACEMENT RX Multivit/Folic Acid/Iron 1 tab 01/28/18 10:00 02/07/18 10:08 Vitamins (Sjr) - PO 1 tab DAILY CHANA Administration Pseudoephedrine/Triprolidine 1 combo 01/27/18 20:16 Actifed - PO TID PRN NASAL CONGESTION Quetiapine Fumarate 200 mg 01/28/18 22:00 02/07/18 21:16 Seroquel - PO 200 mg HS CHANA Administration Thiamine HCl 100 mg 01/27/18 22:00 02/07/18 21:16 Vitamin B1 - PO 100 mg HS CHANA Administration Current Side Effect: No Lab tests ordered: Yes Lab tests reviewed: Yes Provider note:: Patient has completed this program today, She has met her treatment goals and will continue to address her issues in half-way residential treatment at [facility] at [address] [place] [address]. Told copy writer that from her participation in this program, she has learned to surrounding herself with a sober support network to maintain abstinence. She responded well to Seroquel 200 mg po HS. Script for 30 day supply of medication will be electronically transmitted to [facility]. She is stable for discharge today. Total face to face time:: 35 Mental Status Exam - Mental Status Exam Alert and Oriented to: Time, Place, Person Cognitive Function: Fair Patient Appearance: Well Groomed Mood: Hopeful, Euthymic Affect: Appropriate Patient Behavior: Cooperative Speech Pattern: Clear Voice Loudness: Normal Thought Process: Intact, Goal Oriented Thought Disorder: Not Present Hallucinations: Denies Suicidal Ideation: Denies Homicidal Ideation: Denies Insight/Judgement: Fair Sleep: Fair Appetite: Good Muscle strength/Tone: Normal Gait/Station: Normal Psychiatric Treatment Plan - Problem List (1) Alcohol dependence Current Visit: Yes (2) Opioid dependence Current Visit: Yes (3) Nicotine dependence Current Visit: Yes Qualifiers: (4) Hypothyroidism Current Visit: Yes Initial treatment plan: Patient is discharged today and referred to [facility] for oysterman residential treatment
--- NOTE | 2018-02-08 10:04 | PN ---
[facility] Progress Note Note: Others' Prescriptions Patient Name: Rachel Grace Date: 1970 Address: [address] [place] [address] Sex: Female Rx Written Rx Dispensed Drug Quantity Days Supply Prescriber Name 12/25/2017 12/25/2017 suboxone 8 mg-2 mg sl film 45 30 Farhat Yost MD Patient Name: Rachel Grace Date: 1970 Address: [address] [address] Sex: Female Rx Written Rx Dispensed Drug Quantity Days Supply Prescriber Name 11/13/2017 11/14/2017 armodafinil 250 mg tablet 30 30 Farhat Yost MD 11/05/2017 11/06/2017 suboxone 8 mg-2 mg sl film 45 30 Farhat Yost MD 11/03/2017 11/03/2017 suboxone 8 mg-2 mg sl film 5 4 Farhat Yost MD 10/16/2017 10/17/2017 suboxone 8 mg-2 mg sl film 23 16 Kady Glover 08/12/2017 10/12/2017 armodafinil 250 mg tablet 30 30 Kady Glover 09/28/2017 10/03/2017 suboxone 8 mg-2 mg sl film 23 16 Kady Glover 09/18/2017 09/18/2017 suboxone 8 mg-2 mg sl film 23 15 Kady Glover 08/12/2017 09/13/2017 armodafinil 250 mg tablet 30 30 Kady Glover 08/21/2017 09/03/2017 suboxone 8 mg-2 mg sl film 23 16 Kady Glover 07/27/2017 08/20/2017 suboxone 8 mg-2 mg sl film 23 16 Kady Glover 08/12/2017 08/12/2017 armodafinil 250 mg tablet 30 30 Kady Glover 08/05/2017 08/05/2017 suboxone 8 mg-2 mg sl film 23 15 Kady Glover 06/24/2017 07/21/2017 suboxone 8 mg-2 mg sl film 23 16 Kady Glover 04/30/2017 07/13/2017 armodafinil 250 mg tablet 30 30 Kady Glover 07/06/2017 07/08/2017 suboxone 8 mg-2 mg sl film 23 16 Belen Kady 06/01/2017 06/24/2017 suboxone 8 mg-2 mg sl film 23 16 Tina Glovernna 04/30/2017 06/15/2017 armodafinil 250 mg tablet 30 30 Belen Kady 06/10/2017 06/10/2017 suboxone 8 mg-2 mg sl film 23 15 Belen Kady 05/25/2017 05/27/2017 suboxone 8 mg-2 mg sl film 23 16 Belen Kady 04/30/2017 05/15/2017 armodafinil 250 mg tablet 30 30 Belen Kady 05/08/2017 05/13/2017 suboxone 8 mg-2 mg sl film 30 15 Belen Kady 05/08/2017 05/08/2017 suboxone 8 mg-2 mg sl film 10 5 Belen Kady 04/22/2017 04/25/2017 suboxone 8 mg-2 mg sl film 30 15 Belen Kady 01/30/2017 04/15/2017 armodafinil 250 mg tablet 30 30 Belen Kady 04/05/2017 04/05/2017 suboxone 8 mg-2 mg sl film 42 21 Belen Kady 03/23/2017 03/27/2017 suboxone 8 mg-2 mg sl film 20 10 BelenKady 01/30/2017 03/16/2017 armodafinil 250 mg tablet 30 30 BelenKady 02/18/2017 03/16/2017 suboxone 8 mg-2 mg sl film 22 11 BelenKady 01/30/2017 03/15/2017 armodafinil 250 mg tablet 3 3 BelenKady 03/04/2017 03/13/2017 suboxone 8 mg-2 mg sl film 4 2 BelenKady 03/04/2017 03/11/2017 suboxone 8 mg-2 mg sl film 4 2 BelenKady 03/04/2017 03/10/2017 suboxone 8 mg-2 mg sl film 2 1 BelenKady 03/04/2017 03/08/2017 suboxone 8 mg-2 mg sl film 4 2 Kady Glover 03/04/2017 03/07/2017 suboxone 8 mg-2 mg sl film 2 1 Kady Glover 01/30/2017 03/06/2017 armodafinil 250 mg tablet 4 4 Kady Glover 03/04/2017 03/06/2017 suboxone 8 mg-2 mg sl film 2 1 Kady Glover 03/04/2017 03/04/2017 suboxone 8 mg-2 mg sl film 2 1 Kady Glover 02/22/2017 02/24/2017 suboxone 8 mg-2 mg sl film 16 8 Kady Glover 02/22/2017 02/22/2017 suboxone 8 mg-2 mg sl film 4 2 Kady Glover 01/30/2017 02/20/2017 armodafinil 250 mg tablet 5 5 Tina Glovernna 02/18/2017 02/18/2017 suboxone 8 mg-2 mg sl film 8 4 Kady Glover 01/30/2017 02/16/2017 armodafinil 250 mg tablet 8 8 Kady Glover Patient Name: Rachel Grace Date: 1970 Address: [address] [place] [address] Sex: Female Rx Written Rx Dispensed Drug Quantity Days Supply Prescriber Name 01/30/2017 02/14/2017 armodafinil 250 mg tablet 3 3 Kady Glover 01/30/2017 02/10/2017 suboxone 8 mg-2 mg sl film 14 7 Kady Glover * - Drugs marked with an asterisk are compound drugs. If the compound drug is made up of more than one controlled substance, then each controlled substance will be a separate row in the table. Click the Report Suspicious Activity button to report information related to controlled substance suspicious activity to the [place] [employer]. Click the Send Questions/Comments button to send questions about this report to the [place] [employer], or call . Click the Substance Abuse Treatment Information button to go to the Office of Alcoholism and Substance Abuse Services website, www.[place].gov or call 6- 329-016691-015-9837. 2017 [facility] Department of Health - [place] [employer] 02/08/2018 09: 58:43 . .
[2018-02-08] MEDS: NICOTINE 14 MG/24 HOURS TOPICAL PATCH TD SCH (10:06)
[2018-02-08] MEDS: BUPRENORPHINE/NALOXONE 8 MG/2 MG FILM PACKET SL SCH (10:06)
[2018-02-08] MEDS: PRENATAL VITAMINS W/ FOLIC ACID TABLET (FP) PO SCH (10:06)
== END 2018-02-08 10:34 | disposition home or self-care (01) | DRG 772 ==
LOC: YASAS 19:38 → Y3E 19:39
PROVIDERS: ADMIT Psychiatry & Neurology Psychiatry; ATTEND Psychiatry & Neurology Psychiatry
PROC: HZ42ZZZ Group Counseling for Substance Abuse Treatment, Cognitive-Behavioral (ICD-10-PCS; principal; 2018-01-27)
DX: F11.20 Opioid dependence, uncomplicated (principal); F10.20 Alcohol dependence, uncomplicated; F17.210 Nicotine dependence, cigarettes, uncomplicated; E03.9 Hypothyroidism, unspecified; Z59.0 Homelessness